=== PATIENT | male | born 1990 | race American Indian/Alaskan Native ===

== ENCOUNTER 2018-04-23 02:42 | Emergency (ER) | payer SELFPAY ==
[2018-04-23 02:49] VITALS: BP 135/83
[2018-04-23] MEDS ORDERED: DECADRON IV ONE (05:03)
[2018-04-23] MEDS ORDERED: TORADOL IM ONE (05:03)
[2018-04-23] MEDS ORDERED: FLEXERIL PO ONE (05:03)
--- NOTE | 2018-04-23 05:09 | Emergency Department Report ---
ED Back Pain/Injury HPI - General Chief Complaint: Back Pain/Injury Stated Complaint: BACK PAIN Time Seen by Provider: 04/23/18 05:03 Source: patient Limitations: No Limitations - History of Present Illness Initial Comments: 28-year-old -Roman[place] male comes in complaining of lower back pain. Patient reports that he was working out approximately 12:00 this morning and as he was squatting he felt something pulled in his right side of his back. Patient took no pain medicine prior to arrival. He denies any past medical history currently takes no medications on a daily basis and no known drug allergies. MD Complaint: back pain -: During the night Time: 00:00 Similar Symptoms Previously: No Place: other (gym) Radiation: none Severity: severe Severity scale (0 -10): 10 Quality: sharp, stabbing Consistency: constant Improves With: sitting upright Worsens With: movement, walking Context: while lifting Associated Symptoms: denies: numbness, difficulty urinating, incontinence, fever /chills - Related Data Previous Rx's Medication Instructions Recorded Last Taken Type Cyclobenzaprine [Flexeril] 10 mg PO TID PRN #30 tablet 04/23/18 Unknown Rx Ibuprofen [Motrin 800 MG tab] 800 mg PO Q8HR PRN #30 tablet 04/23/18 Unknown Rx Allergies Allergy/AdvReac Type Severity Reaction Status Date / Time No Known Allergies Allergy Verified 04/23/18 02:47 ED Review of Systems ROS: Stated complaint: BACK PAIN Other details as noted in HPI Musculoskeletal: back pain ED Past Medical Hx - Past Medical History Previous Medical History?: No - Surgical History Past Surgical History?: No - Social History Smoking Status: Never Smoker Substance Use Type: None - Medications Home Medications: Home Medications Medication Instructions Recorded Confirmed Last Taken Type Cyclobenzaprine [Flexeril] 10 mg PO TID PRN #30 tablet 04/23/18 Unknown Rx Ibuprofen [Motrin 800 MG tab] 800 mg PO Q8HR PRN #30 tablet 04/23/18 Unknown Rx ED Physical Exam - General Limitations: No Limitations General appearance: alert, in no apparent distress - Head Head exam: Present: atraumatic, normocephalic - ENT ENT exam: Present: mucous membranes moist - Extremities Exam Extremities exam: Present: normal inspection, full ROM. Absent: tenderness - Back Exam Back exam: Present: tenderness, muscle spasm, paraspinal tenderness. Absent: full ROM - Expanded Back Exam Expanded Back exam: Sciatic Notch Tenderness: Right, Positive Straight Leg Raise: Right - Neurological Exam Neurological exam: Present: alert, oriented X3 - Psychiatric Psychiatric exam: Present: normal affect, normal mood - Skin Skin exam: Present: warm, dry, intact, normal color. Absent: rash ED Course Vital Signs 04/23/18 02:47 Temperature 98.3 F Pulse Rate 74 Respiratory 16 Rate Blood Pressure 135/83 O2 Sat by Pulse 97 Oximetry ED Medical Decision Making - Medical Decision Making Patient has been evaluated by this provider fast track. X-ray has been ordered. Medication consist of Toradol 30, dexamethasone 5 mg and Flexeril 10 mg by mouth We'll discharge patient on ibuprofen 800 mg every 8 hours and Flexeril 10 mg by mouth every 8 hours when necessary. If symptoms persist or gets worse please follow-up with your primary care provider. Critical care attestation.: If time is entered above; I have spent that time in minutes in the direct care of this critically ill patient, excluding procedure time. ED Disposition Clinical Impression: Back pain Qualifiers: Back pain location: low back pain Chronicity: acute Back pain laterality: right Sciatica presence: with sciatica Sciatica laterality: sciatica of right side Qualified Code(s): M54.41 - Lumbago with sciatica, right side Low back strain Qualifiers: Encounter type: initial encounter Qualified Code(s): S39.012A - Strain of muscle, fascia and tendon of lower back, initial encounter Disposition: TO HOME OR SELFCARE Is pt being admited?: No Does the pt Need Aspirin: No Condition: Stable Additional Instructions: Take pain medication and muscle relaxant as prescribed and as needed. If her symptoms persist or gets worse please follow-up with your care provider. Prescriptions: Cyclobenzaprine [Flexeril] 10 mg PO TID PRN #30 tablet PRN Reason: Muscle Spasm Ibuprofen [Motrin 800 MG tab] 800 mg PO Q8HR PRN #30 tablet PRN Reason: Pain , Severe (7-10) Referrals: PRIMARY CARE, [Primary Care Provider] - 3-[address] [facility] [Provider Group] - 3-5 Days Forms: Work/School Release Form(ED), Accompanied Note
--- NOTE | 2018-04-23 06:10 | XRay Report ---
FINAL REPORT EXAM: XR SPINE LUMBOSACRAL 2-3V HISTORY: severe back pain TECHNIQUE: Four views of the lumbar spine were submitted. FINDINGS: The disc heights and alignment appear normal. There is no evidence of fracture. The SI joints appear normal. The soft tissues are well maintained. IMPRESSION: Within normal limits.
== END 2018-04-23 06:52 | disposition home or self-care (01) ==
LOC: ED 02:42
DX: S39.012A Strain of muscle, fascia and tendon of lower back, initial encounter (principal); M54.41 Lumbago with sciatica, right side; X50.1XXA Overexertion from prolonged static or awkward postures, initial encounter; Y93.89 Activity, other specified; Y99.8 Other external cause status; Y92.89 Other specified places as the place of occurrence of the external cause
CPT/HCPCS: 72100; 96372; 96374; 99283; J1100; J1885